=== PATIENT | female | born 1940 | race Caucasian/White ===

== ENCOUNTER → 2016-12-04 | Outpatient (CLI) | payer OTHER ==
[~2016-12-04] MED LIST: ATEN-102 PO; CEPH500C3 PO; COZA25TA PO; FISH1000 PO; GLUCTAB PO; LEVO75TA3 PO; LORTA10 PO; LOVA40TA PO; MAGN30TA PO; ULTR50TA PO
--- NOTE | 2016-12-19 10:18 | RSPPFT ---
DATE OF PROCEDURE: 12/04/16 COMMENTS: VOLUMES DYNAMIC: FVC and FEV1 normal. STATIC: Unable to perform. FLOWS: FEV1% and FEF 25-75 normal. DIFFUSION: Moderately reduced. IMPRESSION: Simple spirometry with volumes and flows are normal. Patient was unable to perform static lung volumes and I question the significance of the reduction in diffusion although, clinical correlation is required.
== END ==
LOC: PHRSP 09:31
PROVIDERS: ATTEND Internal Medicine
DX: R06.02 Shortness of breath (principal)
CPT/HCPCS: 94060; 94620; 94729